=== PATIENT | female | born 1955 | race Caucasian/White ===

== ENCOUNTER 2019-11-01 08:23 | Day surgery (SDC) | payer MEDICARE, OTHER ==
[2019-11-01] VITALS (12 sets, daily range): BP systolic 108–135; BP diastolic 52–83
[~2019-11-01] VITALS: Ht 160 cm; Wt 68.3 kg
[~2019-11-01 08:23] MED LIST: ALPR0.5T8 PO; ATEN25TA PO; CELE-193 PO; CHOL100046 PO; CYCL10TA26 PO; LOSA1TAB41 PO; MULT-1180 PO
[2019-11-01] MEDS ORDERED: normal saline 1000ml 1,000 ML IV PRN (08:40)
[2019-11-01 09:13] LABS: BASOPHILS # (AUTO) 0.1 X10'3 (0-0.2); BASOPHILS % (AUTO) 0.7 % (0-1); EOSINOPHILS # (AUTO) 0.2 X10'3 (0-0.9); EOSINOPHILS % (AUTO) 1.8 % (0-6); HEMATOCRIT 51.2 % (35.0-45.0); HEMOGLOBIN 17.4 g/dl (12.0-16.0); LYMPHOCYTES # (AUTO) 1.4 X10'3 (1.1-4.8); LYMPHOCYTES % (AUTO) 15.1 % (21-51); MEAN CORPUSCULAR HEMOGLOBIN 31.9 PG (27.0-31.0); MEAN CORPUSCULAR VOLUME 93.6 FL (78-98); MEAN PLATELET VOLUME 8.6 FL (7.4-10.4); MONOCYTES # (AUTO) 0.8 X10'3 (0-0.9); MONOCYTES % (AUTO) 8.8 % (2-12); NEUTROPHILS # (AUTO) 6.6 X10'3 (1.8-7.7); NEUTROPHILS % (AUTO) 73.6 % (42-75); PLATELET COUNT 311 X10'3 (140-440); RED BLOOD COUNT 5.47 X10'6 (4.20-5.60); RED CELL DISTRIBUTION WIDTH 13.6 % (11.5-14.5)
[2019-11-01] MEDS ORDERED: diatrozoate meglu/diatrozoate sod (37% iodine) 120ML oral solution PO ONE (09:50)
[2019-11-01] MEDS ORDERED: diatr meglu/diatrizoate 30ml oral sol.-(3 dose) bottle PO ONE (10:00)
[2019-11-01] MEDS ORDERED: midazolam 2 mg/2 ml injection ONE (10:31)
[2019-11-01] MEDS ORDERED: fentaNYL/PF 50MCG/1 ML 2ML syringe ONE (10:31)
== END 2019-11-01 12:15 | disposition home or self-care (01) ==
LOC: SSTAY O 08:23
PROVIDERS: ATTEND Radiology Vascular & Interventional Radiology
DX: C48.1 Malignant neoplasm of specified parts of peritoneum (principal); R19.00 Intra-abdominal and pelvic swelling, mass and lump, unspecified site; I10 Essential (primary) hypertension; F41.9 Anxiety disorder, unspecified; G40.909 Epilepsy, unspecified, not intractable, without status epilepticus; Z79.1 Long term (current) use of non-steroidal anti-inflammatories (NSAID); Z79.899 Other long term (current) drug therapy; Z87.891 Personal history of nicotine dependence; Z88.5 Allergy status to narcotic agent; Z96.611 Presence of right artificial shoulder joint; Z90.5 Acquired absence of kidney; Z98.890 Other specified postprocedural states
CPT/HCPCS: 36415; 49180; 77012; 85025; 85610; 88184; 88185; J2250; J3010; J7030; Q9963; 99152; 99153

== ENCOUNTER 2019-11-06 10:23 | Emergency (ER) | payer MEDICARE, OTHER ==
[~2019-11-06] VITALS: Ht 160 cm; Wt 69.3 kg
[~2019-11-06 10:23] MED LIST changes: -CHOL100046 PO; -MULT-1180 PO
[2019-11-06] MEDS ORDERED: normal saline 1000ML IV soln IVB ONE (12:15)
[2019-11-06 12:52] LABS: BASOPHILS % (AUTO) 0.3 % (0-1); EOSINOPHILS % (AUTO) 0.3 % (0-6); HEMATOCRIT 49.5 % (35.0-45.0); HEMOGLOBIN 16.8 g/dl (12.0-16.0); LYMPHOCYTES # (AUTO) 1.2 X10'3 (1.1-4.8); LYMPHOCYTES % (AUTO) 11.3 % (21-51); MEAN CORPUSCULAR HEMOGLOBIN 31.1 PG (27.0-31.0); MEAN CORPUSCULAR HGB CONC 33.9 g/dL (33.0-36.5); MEAN CORPUSCULAR VOLUME 91.8 FL (78-98); MEAN PLATELET VOLUME 8.9 FL (7.4-10.4); MONOCYTES # (AUTO) 1.1 X10'3 (0-0.9); NEUTROPHILS % (AUTO) 77.1 % (42-75); PLATELET COUNT 284 X10'3 (140-440); RED BLOOD COUNT 5.39 X10'6 (4.20-5.60); RED CELL DISTRIBUTION WIDTH 13.6 % (11.5-14.5); WHITE BLOOD COUNT 10.4 X10'3 (4.5-11.0)
[2019-11-06 13:04] LABS: ALANINE AMINOTRANSFERASE 27 U/L (12-78); ALBUMIN 3.9 G/DL (3.4-5.0); ALBUMIN/GLOBULIN RATIO 1.1 (1.1-1.5); ALKALINE PHOSPHATASE 74 IU/L (46-116); ASPARTATE AMINO TRANSFERASE 14 U/L (10-37); BILIRUBIN,TOTAL 0.5 MG/DL (0.1-1.0); BLOOD UREA NITROGEN 19 MG/DL (7-18); BUN/CREATININE RATIO 13.2 (6.6-38.0); CALCIUM 9.4 MG/DL (8.5-10.1); CREATININE 1.44 MG/DL (0.40-0.90); GLUCOSE 91 MG/DL (70-104); LIPASE 149 U/L (73-393); SODIUM 139 MMOL/L (135-145); TOTAL PROTEIN 7.3 G/DL (6.4-8.2); eGFR 37 ML/MIN
[2019-11-06 13:09] LABS: POTASSIUM 4.3 MMOL/L (3.5-5.1)
[2019-11-06 13:15] LABS: ANION GAP 7 (8-16); CHLORIDE 101 MMOL/L (99-107)
[2019-11-06 14:08] LABS: PARTIAL THROMBOPLASTIN TIME 25 SECONDS (22-32)
--- NOTE | 2019-11-06 14:16 | NUR ---
DISTRIBUTION OPERATIONS SUPERVISOR SANCHEZ AWARE THAT UA WAS NOT ENOUGH URINE, REPEAT UA
[2019-11-06 14:31] LABS: CLARITY,URINE CLEAR (Clear); COLOR,URINE YELLOW (Yellow); GLUCOSE, URINE NEGATIVE (Neg); KETONES,URINE NEGATIVE (Neg); LEUKOCYTE ESTERASE ,URINE NEGATIVE (Neg); NITRITES, URINE NEGATIVE (Neg); OCCULT BLOOD,URINE NEGATIVE (Neg); PROTEIN,URINE TRACE mg/dl (Neg); UA COLLECTION TYPE CLN CATCH MIDSTREAM; UROBILINOGEN,URINE 0.2 E.U/dL (0.2-1.0)
[2019-11-06 14:43] LABS: MUCUS STRANDS FEW /LPF (Neg); SQUAMOUS EPITHELIAL CELL,UR MODERATE /LPF (FEW)
[2019-11-06 14:44] LABS: BACTERIA,URINE 1+ /HPF (Neg); RBC,URINE 0-2 /HPF (0-2)
[2019-11-06 15:11] VITALS: BP 127/79
== END 2019-11-06 15:13 | disposition home or self-care (01) ==
LOC: ER 10:23
DX: K91.89 Other postprocedural complications and disorders of digestive system (principal); R19.7 Diarrhea, unspecified; Z88.5 Allergy status to narcotic agent; Z79.899 Other long term (current) drug therapy
CPT/HCPCS: 36415; 80053; 81001; 83690; 85025; 85610; 85730; 87088; 96360; 99283; J7030

== ENCOUNTER 2021-02-26 14:23 | Outpatient (CLI) | payer MEDICARE | END 2021-02-26 23:59 | disposition home or self-care (01) | LOC: CARD DIAG 14:23 | PROVIDERS: ATTEND Internal Medicine Hematology & Oncology | DX: C49.5 Malignant neoplasm of connective and soft tissue of pelvis (principal); I08.1 Rheumatic disorders of both mitral and tricuspid valves | CPT/HCPCS: 93306 ==